=== PATIENT | female | born 1990 | race Native Hawaiian/Other Pacific Islander ===

== ENCOUNTER 2016-10-26 02:32 | Emergency (ER) | payer OTHER ==
[~2016-10-26] VITALS: Ht 157.5 cm; Wt 52.2 kg
[2016-10-26] MEDS ORDERED: PRINIVIL10 MG OR (02:46)
[2016-10-26 03:26] VITALS: BP 152/92; TEMP 98.7
== END 2016-10-26 03:32 | disposition home or self-care (01) ==
LOC: ED 02:32
DX: I31.9 Disease of pericardium, unspecified (principal); R00.0 Tachycardia, unspecified
CPT/HCPCS: 93005; 99282

== ENCOUNTER 2019-07-03 00:23 | Emergency (ER) | payer BC ==
[~2019-07-03] VITALS: Ht 160 cm; Wt 59.0 kg
[~2019-07-03 00:23] MED LIST: PRINIVIL10 MG OR
[2019-07-03] MEDS ORDERED: CLARITIN10 M1 PO (00:54)
[2019-07-03 01:12] LABS: PLATELET COUNT 256 K/uL (152-353)
[2019-07-03 01:19] LABS: POTASSIUM 3.2 mmol/L (3.6-5.2); SODIUM 139 mmol/L (136-145)
[2019-07-03 04:20] VITALS: BP 138/90; TEMP 99.2
== END 2019-07-03 04:20 | disposition home or self-care (01) ==
LOC: ED 00:23
PROVIDERS: Family Medicine
DX: R07.89 Other chest pain (principal); E87.6 Hypokalemia; R00.0 Tachycardia, unspecified
CPT/HCPCS: 36415; 80053; 82550; 82553; 84484; 85027; 87502; 87651; 93005; 99283; 99284

== ENCOUNTER 2019-08-04 13:48 | Outpatient (CLI) | payer BC ==
[~2019-08-04 13:48] MED LIST changes: +CLARITIN10 M1 PO
== END 2019-08-04 21:17 | disposition home or self-care (01) ==
LOC: RESP 13:48
DX: I10 Essential (primary) hypertension (principal); R07.9 Chest pain, unspecified
CPT/HCPCS: 93306

== ENCOUNTER 2019-08-06 08:11 | Outpatient (CLI) | payer BC | END 2019-08-06 19:27 | disposition home or self-care (01) | LOC: LABW 08:11 | DX: Z79.899 Other long term (current) drug therapy (principal) | CPT/HCPCS: 36415; 84443 ==

== ENCOUNTER 2019-08-12 07:50 | Outpatient (CLI) | payer BC | END 2019-08-12 20:52 | disposition home or self-care (01) | LOC: RAD 07:50 | DX: I10 Essential (primary) hypertension (principal); R07.9 Chest pain, unspecified ==

== ENCOUNTER 2022-05-14 10:28 | Outpatient (CLI) | payer OTHER | END 2022-05-14 20:58 | disposition home or self-care (01) | LOC: MAMMO 10:28 | PROVIDERS: ATTEND Registered Nurse | DX: N63.42 Unspecified lump in left breast, subareolar (principal); N64.52 Nipple discharge ==

== ENCOUNTER 2022-05-23 13:29 | Outpatient (CLI) | payer OTHER ==
[~2022-05-23] VITALS: Ht 154.9 cm; Wt 65.8 kg
== END 2022-05-23 19:45 | disposition home or self-care (01) ==
LOC: US 13:29
PROVIDERS: ATTEND Registered Nurse
DX: N63.42 Unspecified lump in left breast, subareolar (principal)